=== PATIENT | male | born 2000 | race Caucasian/White ===

== ENCOUNTER 2023-01-27 00:30 | Emergency (ER) | payer BC ==
[~2023-01-27] VITALS: Ht 180.3 cm; Wt 72.6 kg
[2023-01-27] MEDS ORDERED: SOFO1TAB PO (00:42)
[2023-01-27 03:19] VITALS: O2SAT 98
== END 2023-01-27 03:45 ==
LOC: ER 00:34 → EDBD 00:34 → ER 03:45
DX: T40.411A Poisoning by fentanyl or fentanyl analogs, accidental (unintentional), initial encounter (principal); F17.210 Nicotine dependence, cigarettes, uncomplicated; Z71.6 Tobacco abuse counseling; Z79.899 Other long term (current) drug therapy; Y92.89 Other specified places as the place of occurrence of the external cause
CPT/HCPCS: A4606; A4663